=== PATIENT | male | born 1970 | race Caucasian/White ===

== ENCOUNTER → 2017-02-16 | Outpatient (CLI) | payer BC ==
[~2017-02-16] MED LIST: ATOR-24 PO; PANT40TA PO
[2017-02-16 15:34] LABS: ALT/SGPT 36 U/L (12-78); BLOOD UREA NITROGEN 18 mg/dl (7-18); BUN/CREATININE RATIO 15.1 (10-20); CALCIUM 9.1 mg/dl (8.5-10.1); CARBON DIOXIDE 29 mmol/L (21-32); CHLORIDE 104 mmol/L (98-107); GLUCOSE 106 mg/dl (70-99); HDL CHOLESTEROL 48 mg/dl; POTASSIUM 4.1 mmol/L (3.5-5.1); SODIUM 139 mmol/L (136-145)
[2017-02-16 15:47] LABS: AST/SGOT 17 U/L (15-37); CHOLESTEROL 194 mg/dl (0-200); LDL CHOLESTEROL CALCULATED 119 mg/dl; TRIGLYCERIDES 136 mg/dl (0-150); VERY LOW DENSITY LIPOPROT CALC 27 mg/dl
== END | disposition home or self-care (01) ==
LOC: C.LABBC 09:13
DX: E78.5 Hyperlipidemia, unspecified (principal)

== ENCOUNTER → 2017-03-15 | Outpatient (CLI) | payer BC ==
--- NOTE | 2017-03-15 09:31 | DIAGNOSTIC IMAGING REPORT ---
KUB HISTORY: Generalized ABDOMINAL PAIN, CONSTIPATION, FECAL RETENTION COMPARISON: Abdomen and pelvis CT 08/25/2015. FINDINGS: The bowel gas pattern is unremarkable. There are no dilated loops of small bowel to suggest an obstruction. No renal calculi. No ureteral calculi. No pneumoperitoneum or pneumatosis. Small amount of stool within the colon. IMPRESSION: Unremarkable KUB. Electronically signed by: Aman Serrano M.D. 03/15/2017 9:30 AM Dictated Date/Time: 03/15/2017 9:28 AM
== END | disposition home or self-care (01) ==
LOC: C.RADBC 09:11
DX: R10.9 Unspecified abdominal pain (principal); K59.00 Constipation, unspecified

== ENCOUNTER → 2017-06-01 | Outpatient (CLI) | payer BC ==
[2017-06-01 14:34] LABS: CHOLESTEROL/HDL RATIO 5.3
== END | disposition home or self-care (01) ==
LOC: C.LABBC 09:14
DX: E78.5 Hyperlipidemia, unspecified (principal)

== ENCOUNTER → 2017-06-17 | Outpatient (CLI) | payer BC ==
--- NOTE | 2017-06-17 10:16 | DIAGNOSTIC IMAGING REPORT ---
GI SERIES AND SMALL BOWEL CLINICAL HISTORY: ABDOMINAL PAINpain COMPARISON STUDY: None FLUOROSCOPY TIME: 3 minutes. FINDINGS: Trace aspiration with thin liquids. Esophagus is normal in course and caliber. Mild gastroesophageal reflux. Size configuration stomach are normal. Duodenal bulb fills well. Duodenal sweep is unremarkable. Mucosal pattern and transit time throughout small bowel are unremarkable. Spot films the terminal ileum are within normal limits. IMPRESSION: 1. Trace aspiration. 2. Mild gastroesophageal reflux. 3. Otherwise negative study The above report was generated using voice recognition software. It may contain grammatical, syntax or spelling errors. Electronically signed by: Anthony Oconnor M.D. 06/17/2017 10:15 AM Dictated Date/Time: 06/17/2017 10:12 AM
== END | disposition home or self-care (01) ==
LOC: C.RAD 09:29
DX: R10.9 Unspecified abdominal pain (principal)

== ENCOUNTER → 2017-06-24 | Outpatient (CLI) | payer BC ==
--- NOTE | 2017-06-24 15:35 | EXERCISE STRESS ECHO ---
*NOTICE TO RECEIVING CONSTITUTION PARTY AGENCY This information is strictly Confidential and protected under [place] law. [place] law prohibits you from making any further disclosure of this information unless further disclosure is expressly permitted by the written consent of the person to whom it pertains or is authorized by law. A general authorization for the release of medical or other information is not sufficient for this purpose. Hospital accepts no responsibility if the information is made available to any other person, INCLUDING THE PATIENT. Interpretation Summary * Name: RODRIGUEZ HERNANDEZ Study Date: 06/24/2017 10:06 AM BP: 128/79 mmHg * Patient Location: [facility] HR: 61 * : 1970 (M/d/yyyy) Gender: Male Height: 71 in * Age: 46 yrs Ethnicity: [place] Weight: 180 lb * Ordering Physician: Nasim Mcelroy * Referring Physician: Nasim Mcelroy D.O. * Performed By: Amanda Castaneda RCS * * Reason For Study: Dyspnea on Exertion * BSA: 2.0 m2 * -- Conclusions -- * 1. Normal stress echocardiogram at 13.4 METS and a heart rate of 90 4 percent predicted maximum. * 2. No exercise-induced chest pain. * 3. No EKG changes. * 4. Baseline echocardiogram notes normal left ventricular systolic function and evidence of diastolic dysfunction. Procedure Details * ECHOEX, CPT #[id number] * ECHO COLOR FLOW, CPT #[id number] * ECHO DOPPLER, CPT #[id number] Left Ventricle * The left ventricle is normal in size. * There is borderline concentric left ventricular hypertrophy. * Ejection Fraction = 65-70%. * Left ventricular systolic function is normal. * Resting wall motion: Normal. Stress wall motion: Appropriate increase in Left ventricular systolic function and decrease in cavity size. No stress induced segmental wall motion abnormalities. Right Ventricle * The right ventricular cavity size is normal (basal dimension <4.2 cm in right ventricular apical 4-chamber view). * The right ventricular systolic function is normal as assessed by tricuspid annular plane systolic excursion (TAPSE) (normal >1.5 cm). Atria * The left atrial size is normal. * Right atrial size is normal. * No ASD detected; PFO is not assessed. Mitral Valve * The mitral valve anatomy is normal. * There is no mitral valve stenosis. * Significant mitral regurgitation is absent. Tricuspid Valve * The tricuspid valve anatomy is normal. * There is no tricuspid stenosis. * There is mild tricuspid regurgitation. Aortic Valve * The aortic valve is normal in structure and function. * No hemodynamically significant valvular aortic stenosis. * No aortic regurgitation is present. Pulmonic Valve * The pulmonary valve is not well seen, but the Doppler examination is normal without significant regurgitation or stenosis. Great Vessels * The aortic root is normal size. Pericardium * There is no pericardial effusion. Stress Parameters * Normal baseline electrocardiogram. * Stress ECG: No ST changes. No arrhythmias. * The stress portion of this study was personally supervised by the undersigned interpreting physician. * Rest heart rate was '61' BPM. * Rest blood pressure was '128/78' * Maximum heart rate achieved was 166 bpm. * Maximum heart rate was 94 % of maximum age-predicted heart rate. * Maximum blood pressure was '188/93' * Total exercise time was '9:47' * Maximum exercise MET level achieved was '13.4' METS * Maximum treadmill speed was '4.2' miles per hour. * Maximum treadmill elevation was '16'% grade. * Exercise was terminated due to 'fatigue after achieving target heart rate' * Normal blood pressure response to exercise. Left Ventricular Diastolic Function * Grade I diastolic dysfunction, (abnormal relaxation pattern). MMode 2D Measurements and Calculations IVSd 10 cm IVSs 1.2 cm LVIDd 5.0 cm LVIDs 3.0 cm LVPWd 0.91 cm LVPWs 1.3 cm IVS/LVPW 1.1 FS 40.4 % EDV(Teich) 118.4 ml ESV(Teich) 34.5 ml EF(Teich) 70.9 % EDV(cubed) 125.2 ml ESV(cubed) 26.5 ml EF(cubed) 78.8 % % IVS thick 17.8 % % LVPW thick 38.9 % LV mass(C)d 170.6 grams LV mass(C)dI 84.6 grams/m\S\2 LV mass(C)s 110.8 grams LV mass(C)sI 54.9 grams/m\S\2 CO(Teich) 4.8 l/min CI(Teich) 2.4 l/min/m\S\2 SV(Teich) 83.9 ml SI(Teich) 41.6 ml/m\S\2 CO(cubed) 5.6 l/min CI(cubed) 2.8 l/min/m\S\2 SV(cubed) 98.7 ml SI(cubed) 48.9 ml/m\S\2 Ao root diam 3.4 cm Ao root area 8.9 cm\S\2 ACS 2.0 cm LA dimension 3.6 cm asc Aorta Diam 3.1 cm LA/Ao 1.1 LVAd ap4 43.6 cm\S\2 LVLd ap4 10.1 cm EDV(MOD-sp4) 153.0 ml LVAs ap4 21.7 cm\S\2 LVLs ap4 8.0 cm ESV(MOD-sp4) 50.0 ml EF(MOD-sp4) 67.3 % LVAd ap2 37.5 cm\S\2 LVLd ap2 9.5 cm EDV(MOD-sp2) 121.0 ml LVAs ap2 18.8 cm\S\2 LVLs ap2 8.2 cm ESV(MOD-sp2) 40.0 ml EF(MOD-sp2) 66.9 % CO(MOD-sp4) 5.9 l/min CI(MOD-sp4) 2.9 l/min/m\S\2 SV(MOD-sp4) 103.0 ml SI(MOD-sp4) 51.1 ml/m\S\2 CO(MOD-sp2) 4.6 l/min CI(MOD-sp2) 2.3 l/min/m\S\2 SV(MOD-sp2) 81.0 ml SI(MOD-sp2) 40.2 ml/m\S\2 Doppler Measurements and Calculations MV E max mandi 78.4 cm/sec MV A max mandi 40.6 cm/sec MV E/A 1.9 MV P1/2t max mandi 85.4 cm/sec MV P1/2t 79.8 msec MVA(P1/2t) 2.8 cm\S\2 MV dec slope 313.3 cm/sec\S\2 MV dec time 0.33 sec Ao V2 max 148.8 cm/sec Ao max PG 8.9 mmHg Ao max PG (full) 1.3 mmHg LV V1 max PG 7.6 mmHg LV V1 max 137.6 cm/sec PA V2 max 111.3 cm/sec PA max PG 5.0 mmHg PI max mandi 179.2 cm/sec PI max PG 12.8 mmHg PI dec slope 137.5 cm/sec\S\2 PI P1/2t 381.7 msec TR max mandi 204.7 cm/sec
== END | disposition home or self-care (01) ==
LOC: C.CPL 09:35
DX: R06.00 Dyspnea, unspecified (principal)

== ENCOUNTER → 2017-11-03 | Outpatient (CLI) | payer BC ==
--- NOTE | 2017-11-25 08:39 | CODING QUERY NO DIAGNOSIS ---
TREATMENT RENDERED WITHOUT A DIAGNOSIS 72 To promote full compliance with coding requirements relating to patient care, physician participation is requested in all cases of forensic structural engineer uncertainty. Please assist us with providing a diagnosis/symptom for the test(s) below: A diagnosis/symptom was not documented on your Order. A valid diagnosis/symptom is required to bill all insurances. Please remember that we are unable to code a diagnosis of rule out, probable, possible, questionable, or suspected. DOS 11/03/17 Tests that require a diagnosis: * ALT/SGPT DIAGNOSIS: * AST/SGOT DIAGNOSIS: * CREATINIE PHOSPHKINASE DIAGNOSIS: * LIPID PROFILE FASTING DIAGNOSIS: Provider Signature: Date: Thank you Diane Alonzo Health Information Management Once completed, please kindly fax back to [phone] For questions please call [phone]
== END | disposition home or self-care (01) ==
LOC: C.LAB 17:02
DX: Z01.89 Encounter for other specified special examinations (principal)

== ENCOUNTER 2018-03-02 12:33 | Emergency (ER) | payer BC ==
[~2018-03-02] VITALS: Ht 180.3 cm; Wt 91.8 kg
[2018-03-02 12:36] VITALS: TEMP 36.7; Ht 180.3 cm; Wt 91.8 kg
[2018-03-02 14:08] LABS: BASO % 0.2 %; BASO ABS # 0.01 K/uL (0-0.2); EOS % 1.4 %; EOS ABS # 0.07 K/uL (0-0.5); HEMATOCRIT 44.7 % (42-52); HEMOGLOBIN 16.6 g/dL (14.0-18.0); IG# 0.01 K/uL (0.00-0.02); LYMPH ABS # 1.45 K/uL (1.2-3.4); MEAN CELL VOLUME 86.3 fL (80-100); MEAN CORPUSCULAR HGB CONC 37.1 g/dl (32-36); MEAN PLATELET VOLUME 9.8 fL (7.4-10.4); MONO % 7.7 %; NEUT % 62.5 %; NEUT ABS # 3.24 K/uL (1.4-6.5); PLATELET COUNT 174 K/uL (130-400); RED CELL DISTRIBUTION WIDTH CV 12.8 % (11.5-14.5); RED CELL DISTRIBUTION WIDTH SD 40.5 fL (36.4-46.3); WHITE BLOOD COUNT 5.18 K/uL (4.8-10.8)
[2018-03-02] MEDS ORDERED: ATV/2 PO (14:10)
[2018-03-02] MEDS ORDERED: AMT50 PO (14:10)
[2018-03-02 14:31] LABS: CALCIUM 9.3 mg/dl (8.5-10.1); CREATININE 1.1 mg/dl (0.60-1.40)
--- NOTE | 2018-03-02 14:56 | DIAGNOSTIC IMAGING REPORT ---
CERVICAL SPINE W/O CT DOSE: HISTORY: Trauma. Pain. Head trauma, headache and L sided neck pain TECHNIQUE: Multiaxial CT images of the cervical spine were performed and reformatted in the sagittal and coronal plane without the use of contrast. A dose lowering technique was utilized adhering to the principles of ALARA. COMPARISON: None. FINDINGS: No fractures. No subluxation. Prevertebral soft tissues and the C1-C2 interval are intact. No pneumothorax. IMPRESSION: No fractures within the cervical spine. The above report was generated using voice recognition software. It may contain grammatical, syntax or spelling errors. Electronically signed by: Anthony Oconnor M.D. 03/02/2018 2:55 PM Dictated Date/Time: 03/02/2018 2:53 PM
--- NOTE | 2018-03-02 14:57 | DIAGNOSTIC IMAGING REPORT ---
CT SCAN OF THE BRAIN WITHOUT IV CONTRAST CLINICAL HISTORY: Head injury. COMPARISON STUDY: No priors. TECHNIQUE: Unenhanced axial CT scan of the brain is performed from the vertex to the skull base. A dose lowering technique was utilized adhering to the principles of ALARA. FINDINGS: Brain parenchyma: The brain parenchyma is normal in appearance. There is no hemorrhage, mass effect, or evidence of acute territorial ischemia by CT criteria. Allison-white matter is preserved. No extra-axial fluid collection is seen. Ventricles, sulci, cisterns: Normal in configuration. Intracranial vasculature: The visualized intracranial vasculature at the skull base is normal in appearance. Calvarium: There is no depressed calvarial fracture. Sinuses and mastoids: The visualized paranasal sinuses are clear. The mastoid air cells are well pneumatized. Orbits: The bony orbits are grossly intact. IMPRESSION: No acute intracranial abnormality. Electronically signed by: Bernardino Wilburn M.D. 03/02/2018 2:56 PM Dictated Date/Time: 03/02/2018 2:54 PM
--- NOTE | 2018-03-02 14:58 | DIAGNOSTIC IMAGING REPORT ---
NECK ANGIO WITH CONTRAST HISTORY: Mental status change pain TECHNIQUE: Multiaxial CT images of the neck were performed following the intravenous administration of contrast to evaluate the major cervical vessels. Maximum intensity projection images were also obtained. All measurements were calculated based on NASCET criteria. A dose lowering technique was utilized adhering to the principles of ALARA. COMPARISON STUDY: None. FINDINGS: The aortic arch and proximal great vessels are widely patent. There is no significant stenosis, occlusion, or dissection identified within the bilateral common carotid, internal carotid, or vertebral arteries. IMPRESSION: No significant stenosis, occlusion, or dissection identified within the carotid or vertebral arteries. Normal study The above report was generated using voice recognition software. It may contain grammatical, syntax or spelling errors. Electronically signed by: Anthony Oconnor M.D. 03/02/2018 2:57 PM Dictated Date/Time: 03/02/2018 2:55 PM
[2018-03-02] MEDS ORDERED: OPTIRAY 320 IV PRN (15:00)
[2018-03-02] MEDS ORDERED: HYDR-5688 PO (15:44)
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
[2018-03-02 15:59] VITALS: BP 151/105; PULSE 74; O2SAT 96
== END 2018-03-02 16:06 | disposition home or self-care (01) ==
LOC: C.EDB 12:35 → C.EDD 16:06
DX: S06.0X0A Concussion without loss of consciousness, initial encounter (principal); M54.2 Cervicalgia; V18.0XXA Pedal cycle driver injured in noncollision transport accident in nontraffic accident, initial encounter; Y92.89 Other specified places as the place of occurrence of the external cause; Y93.55 Activity, bike riding; K21.9 Gastro-esophageal reflux disease without esophagitis; Z79.899 Other long term (current) drug therapy